=== PATIENT | male | born 1980 | race Caucasian/White ===

== ENCOUNTER 2017-01-04 03:24 | Inpatient (IN) | payer OTHER ==
[~2017-01-04] VITALS: Ht 182.9 cm; Wt 72.1 kg
[2017-01-04 06:34] VITALS: BP 126/89; PULSE 71; RESP 18; TEMP 98.6; O2SAT 99
[2017-01-04] MEDS ORDERED: diphenhydrAMINE HCL 50 MG/ML VIAL - HS PRN IM (07:30)
[2017-01-04] MEDS ORDERED: MAGNESIUM HYDROXIDE SUSP 30 ML CUP PO PRN (07:30)
[2017-01-04] MEDS ORDERED: ALUMINUM/MAGNESIUM/SIMETH 30 ML CUP PO PRN (07:30)
[2017-01-04] MEDS ORDERED: ACETAMINOPHEN 325 MG TAB PO PRN (07:30)
[2017-01-04] MEDS ORDERED: diphenhydrAMINE HCL 50 MG CAP - HS PRN PO (07:30)
[2017-01-04] MEDS ORDERED: LORazepam 1 MG TAB PO PRN (07:45)
[2017-01-04] MEDS ORDERED: FLUMAZENIL 0.5 MG/5 ML VIAL IV PUSH PRN (07:45)
[2017-01-04] MEDS ORDERED: LORazepam 2 MG/ML VIAL IV PUSH PRN ×4 (07:45)
[2017-01-04] MEDS ORDERED: LORazepam 2 MG TAB PO PRN (07:45)
[2017-01-04] MEDS: NICOTINE 21 MG/24 HR PATCH T-DERMAL SCH (09:00)
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
[2017-01-04] MEDS: hydrOXYzine HCL 50 MG TAB PO PRN (17:22)
[2017-01-04 18:18] VITALS: BP 123/80; PULSE 72; RESP 17; TEMP 97.8; O2SAT 99
[2017-01-04] MEDS: REMOVE OLD NICOTINE PATCH T-DERMAL SCH (20:38)
[2017-01-04] MEDS: traZODone HCL 50 MG TAB PO PRN (20:40)
[2017-01-05 05:42] VITALS: BP 116/69; PULSE 68; RESP 16; TEMP 97.8; O2SAT 97
[2017-01-05] MEDS: FOLIC ACID 1 MG TAB PO SCH (08:52)
[2017-01-05] MEDS: NICOTINE 21 MG/24 HR PATCH T-DERMAL SCH (08:52)
[2017-01-05] MEDS: THIAMINE HCL 100 MG TAB PO SCH (08:52)
[2017-01-05] MEDS ORDERED: SERTRALINE HCL 50 MG TAB PO SCH (09:00)
[2017-01-05 10:00] LABS: ANION GAP 8 MEQ/L (5-15); AST (GOT) 43 U/L (15-37); BICARBONATE 26.7 MEQ/L (21.0-32.0); BLOOD UREA NITROGEN 11 MG/DL (7-18); CHLORIDE 106 MEQ/L (98-107); GLOMERULAR FILTRATION RATE 112 ML/MIN (>89); POTASSIUM 3.8 MEQ/L (3.5-5.1); SODIUM (NA) 141 MEQ/L (136-145)
[2017-01-05 10:12] LABS: ALKALINE PHOSPHATASE 121 U/L (45-117); ALT (GPT) 97 U/L (12-78); HDL CHOLESTEROL 32.4 MG/DL (40.0-60.0); LDL CHOLESTEROL 54 MG/DL (0-99); TOTAL BILIRUBIN ADULT 0.6 MG/DL (0.2-1.0)
--- NOTE | 2017-01-05 10:12 | HHI.PYPN ---
Subjective Chief Complaint: "I don't have anywhere to stay and I can't work." Remarks Patient seen and examined with counselor. Chart reviewed. Case discussed in treatment team. On my exam, patient is dysphoric. He remains fairly soft- spoken and withdrawn. He complains of "bad dreams" overnight. He does not usually have nightmares. Denies active SI. Denies side effects from medications. No new physical complaints. We discuss pharmacotherapeutic options going forward and well as dispo planning. Review of Systems Except as stated in HPI: all other systems reviewed are Neg Mental Status Examination Appearance: Disheveled Consciousness: Alert Orientation: Person, Place (at least) Motor Activity: Other (no motor abnormalities noted) Speech: Other (remains soft) Language: Adequate Fund of Knowledge: Adequate Attention and Concentration: Adequate Memory: Unremarkable (grossly intact on clinical exam) Mood: Other (dysphoric) Affect: Other (restricted) Thought Process & Associations: Intact, Logical, Linear Thought Content: Appropriate Hallucination Type: None Delusion Type: None Suicidal Ideation: No Suicidal Plan: No Suicidal Intention: No Homicidal Ideation: No Homicidal Plan: No Homicidal Intention: No Insight: Fair Judgment: Impulsive Mental Status Exam Remarks No signs of withdrawal noted. CIWA scores have been 0. Results Labs Test 01/05/17 09:09 Blood Urea Nitrogen 11 MG/DL Creatinine 0.79 MG/DL Random Glucose 87 MG/DL Total Protein 6.9 GM/DL Albumin 3.4 GM/DL Calcium Level 8.6 MG/DL Alkaline Phosphatase 121 U/L Aspartate Amino Transf (AST/SGOT) 43 U/L Alanine Aminotransferase (ALT/SGPT) 97 U/L Total Bilirubin 0.6 MG/DL Sodium Level 141 MEQ/L Potassium Level 3.8 MEQ/L Chloride Level 106 MEQ/L Carbon Dioxide Level 26.7 MEQ/L Anion Gap 8 MEQ/L Estimat Glomerular Filtration Rate 112 ML/MIN Triglycerides Level 309 MG/DL Cholesterol Level 148 MG/DL LDL Cholesterol 54 MG/DL HDL Cholesterol 32.4 MG/DL Cholesterol/HDL Ratio 4.56 RATIO Thyroid Stimulating Hormone 3rd Gen 1.220 uIU/ML Labs reviewed. Mild transaminitis. Triglycerides elevated and the patient will be referred to primary care on discharge. Vitals/IOs Vital Signs Date Time Temp Pulse Resp B/P (MAP) Pulse Ox O2 Delivery O2 Flow Rate FiO2 01/05/17 05:42 97.8 68 16 116/69 (85) 97 Intake and Output 01/05/17 01/05/17 01/06/17 08:00 16:00 00:00 Intake Total 360 ml Balance 360 ml Assessment & Plan Problem List: (1) Adjustment disorder with depressed mood ICD Codes: F43.21 - Adjustment disorder with depressed mood (2) Cocaine abuse ICD Codes: F14.10 - Cocaine abuse, uncomplicated (3) Alcohol abuse ICD Codes: F10.10 - Alcohol abuse, uncomplicated Assessment & Plan Titrate Zoloft over the weekend to target dysphoria. Trend LFTs. Continue to monitor on the inpatient unit. Continue other medications and care as ordered. Justification for Cont. Inpt. Med changes. Monitoring for impairments in safety, none noted. Discharge Planning Anticipate discharge beginning of next week. Request HC Surrog/Guard Advoc?: No Chapin Wheeler MD Jan 05, 2017 10:12
--- NOTE | 2017-01-05 11:35 | PD.TTN ---
Patient Problems 1. Discharge planning 2. Medication compliance 3. Knowledge deficit 4. Lack of coping skills Progress Toward Goals Provider Present: Dr. Diamond Wheeler Provider Input: Pt medication regiment has been adjusted including addition of Zoloft and Trazadone. He will continue to be monitored. Nurse(s) Present: Tosha Carter RN Nurse(s) Input: Pt appears seclusive, hopeless, helpless, withdrawn, medication compilant and with suicidal ideation though there is no reported plan. Psychiatric Counselors Present: DIONISIO Gonzalez Psych Therapist Input: Pt appears withdrawn, seclusive, depressed, hopeless, helpless, medication focused and guarded. Pt reports that he is not feeling any different then when he was admitted with ongoing mood symptoms and vague suicidal ideation. He is heavily focused on medication, namely Xanax, and issues with lack of services previously. Discussed discharge planning and services that he will be assisted with. Pt presents with some underlying agitation though no noted aggression. He states he is not sleeping well and is having "bad dreams". Pt is compliant with medication regiment. Insight remains poor into condition and need for care. He recognizes triggers to his emotional distress but appears unable to utilize coping skills at this time to manage these. Group Spec/RT/OT/ELLIOTT Present: EARL Mark Group Spec/RT/OT/ELLIOTT Input: Pt is new to the unit and is being evaluated with regard to his participation level in groups. Discharge Plan Other Pt will likely be a homeless discharge but will be linked to outpatient follow up services and will be provided with his scripts upon discharge. Documentation Scribe: DIONISIO Gonzalez Jonathan LMHC Jan 05, 2017 11:34
[2017-01-05 11:50] LABS: HEMOGLOBIN A1a 1.2 %; HEMOGLOBIN A1b 1.6 %; HEMOGLOBIN Ao 86.2 %; HEMOGLOBIN LA1C 1.8 %; HEMOGLOBIN P3 3.4 %
[2017-01-05 17:42] VITALS: BP 122/70; PULSE 82; RESP 18; TEMP 97.7; O2SAT 99
[2017-01-05] MEDS: traZODone HCL 50 MG TAB PO PRN (20:42)
[2017-01-05] MEDS: REMOVE OLD NICOTINE PATCH T-DERMAL SCH (20:42)
[2017-01-05] MEDS: hydrOXYzine HCL 50 MG TAB PO PRN (20:42)
[2017-01-06 06:02] VITALS: BP 119/72; PULSE 68; RESP 18; TEMP 97.9; O2SAT 99
[2017-01-06] MEDS: FOLIC ACID 1 MG TAB PO SCH (08:50)
[2017-01-06] MEDS: THIAMINE HCL 100 MG TAB PO SCH (08:50)
[2017-01-06] MEDS: SERTRALINE HCL 50 MG TAB PO SCH (08:51)
[2017-01-06] MEDS: NICOTINE 21 MG/24 HR PATCH T-DERMAL SCH (08:51)
[2017-01-06] MEDS: hydrOXYzine HCL 50 MG TAB PO PRN (13:21)
--- NOTE | 2017-01-06 13:58 | HHI.PYPN ---
Subjective Chief Complaint: "I don't have anywhere to stay and I can't work." Remarks Pt seen and discussed with staff. He has been refusing to shower or perform ADLs. He is compliant with medications and denies side effects. He has been irritable and entitled with medical staff services coordinator. He c/o of anxiety. No SI/HI Mental Status Examination Appearance: Disheveled Consciousness: Alert Orientation: Person, Place (at least) Motor Activity: Other (no motor abnormalities noted) Speech: Other (remains soft) Language: Adequate Fund of Knowledge: Adequate Attention and Concentration: Adequate Memory: Unremarkable (grossly intact on clinical exam) Mood: Irritable, Other (dysphoric) Affect: Irritable, Other (restricted) Thought Process & Associations: Intact, Logical, Linear Thought Content: Appropriate Hallucination Type: None Delusion Type: None Suicidal Ideation: No Suicidal Plan: No Suicidal Intention: No Homicidal Ideation: No Homicidal Plan: No Homicidal Intention: No Insight: Fair Judgment: Impulsive Results Vitals/IOs Vital Signs Date Time Temp Pulse Resp B/P (MAP) Pulse Ox O2 Delivery O2 Flow Rate FiO2 01/06/17 06:02 97.9 68 18 119/72 (88) 99 Assessment & Plan Problem List: (1) Adjustment disorder with depressed mood ICD Codes: F43.21 - Adjustment disorder with depressed mood (2) Cocaine abuse ICD Codes: F14.10 - Cocaine abuse, uncomplicated (3) Alcohol abuse ICD Codes: F10.10 - Alcohol abuse, uncomplicated Assessment & Plan Continue current tx plan. Estimated LOS: days Justification for Cont. Inpt. risk of decompensation Request HC Surrog/Guard Advoc?: Anna Bhatia MD Jan 06, 2017 13:58
[2017-01-06 17:29] VITALS: BP 106/74; PULSE 83; RESP 18; TEMP 98.3; O2SAT 97
[2017-01-06 19:58] LABS: INDIRECT BILIRUBIN 0.5 MG/DL (0.0-0.8); TOTAL BILIRUBIN ADULT 0.6 MG/DL (0.2-1.0)
[2017-01-06] MEDS: traZODone HCL 50 MG TAB PO PRN (20:34)
[2017-01-06] MEDS: REMOVE OLD NICOTINE PATCH T-DERMAL SCH (20:35)
[2017-01-07 06:06] VITALS: BP 93/54; PULSE 62; RESP 17; TEMP 97.6; O2SAT 98
[2017-01-07] MEDS: THIAMINE HCL 100 MG TAB PO SCH (09:00)
[2017-01-07] MEDS: FOLIC ACID 1 MG TAB PO SCH (09:00)
[2017-01-07] MEDS: NICOTINE 21 MG/24 HR PATCH T-DERMAL SCH (09:00)
[2017-01-07] MEDS: SERTRALINE HCL 50 MG TAB PO SCH (09:00)
[2017-01-07] MEDS: hydrOXYzine HCL 50 MG TAB PO PRN (09:23)
--- NOTE | 2017-01-07 13:13 | HHI.PYPN ---
Subjective Chief Complaint: "I don't have anywhere to stay and I can't work." Remarks Pt seen and discussed with staff. He has been compliant with medications. No SI/ HI. He has been irritable with RNs and engaging in drug seeking behaviors, but has not been aggressive or agitated. He has been isolative to his room. Mental Status Examination Appearance: Disheveled Consciousness: Alert Orientation: Person, Place (at least) Motor Activity: Other (no motor abnormalities noted) Speech: Other (remains soft) Language: Adequate Fund of Knowledge: Adequate Attention and Concentration: Adequate Memory: Unremarkable (grossly intact on clinical exam) Mood: Irritable, Other (dysphoric) Affect: Irritable, Other (restricted) Thought Process & Associations: Intact, Logical, Linear Thought Content: Appropriate Hallucination Type: None Delusion Type: None Suicidal Ideation: No Suicidal Plan: No Suicidal Intention: No Homicidal Ideation: No Homicidal Plan: No Homicidal Intention: No Insight: Fair Judgment: Impulsive Results Labs Test 01/06/17 19:16 Total Bilirubin 0.6 MG/DL Direct Bilirubin 0.1 MG/DL Indirect Bilirubin 0.5 MG/DL Aspartate Amino Transf (AST/SGOT) 46 U/L Alanine Aminotransferase (ALT/SGPT) 108 U/L Alkaline Phosphatase 142 U/L Total Protein 7.7 GM/DL Albumin 3.7 GM/DL Vitals/IOs Vital Signs Date Time Temp Pulse Resp B/P (MAP) Pulse Ox O2 Delivery O2 Flow Rate FiO2 01/07/17 06:06 97.6 62 17 93/54 (67) 98 Assessment & Plan Problem List: (1) Adjustment disorder with depressed mood ICD Codes: F43.21 - Adjustment disorder with depressed mood (2) Cocaine abuse ICD Codes: F14.10 - Cocaine abuse, uncomplicated (3) Alcohol abuse ICD Codes: F10.10 - Alcohol abuse, uncomplicated Assessment & Plan Continue current tx plan Estimated LOS: days Justification for Cont. Inpt. risk of decompensation Request HC Surrog/Guard Advoc?: Anna Bhatia MD Jan 07, 2017 13:13
[2017-01-07 17:08] VITALS: BP 106/74; PULSE 82; RESP 18; TEMP 97.8; O2SAT 99
[2017-01-07] MEDS: traZODone HCL 50 MG TAB PO PRN (20:29)
[2017-01-07] MEDS: REMOVE OLD NICOTINE PATCH T-DERMAL SCH (20:29)
[2017-01-08 06:40] VITALS: BP 107/58; PULSE 71; RESP 18; TEMP 97.9; O2SAT 97
[2017-01-08] MEDS: THIAMINE HCL 100 MG TAB PO SCH (09:00)
[2017-01-08] MEDS: SERTRALINE HCL 50 MG TAB PO SCH (09:00)
[2017-01-08] MEDS: FOLIC ACID 1 MG TAB PO SCH (09:00)
[2017-01-08] MEDS: NICOTINE 21 MG/24 HR PATCH T-DERMAL SCH (09:02)
--- NOTE | 2017-01-08 11:48 | HHI.PYPN ---
Subjective Chief Complaint: "I don't have anywhere to stay and I can't work." Remarks Patient seen and examined with nurse. Chart reviewed. Case discussed with nursing staff. Patient was apparently verbalizing some vague HI against unspecified others in community but not on unit over weekend. On my exam, patient denies any SI/HI. He does report some irritability, although there is no evidence of induction of manic or mixed state with antidepressant, and if anything patient seems psychomotor slowed and withdrawn. He does report his mood is improving with medications. Denies AVH. He notes he plans to shower today. Denies side effects from medications. No physical complaints. Review of Systems Except as stated in HPI: all other systems reviewed are Neg Mental Status Examination Appearance: Disheveled Consciousness: Alert Orientation: Person, Place Motor Activity: Other (no motoric abnormalities noted. No signs of withdrawal noted.) Speech: Other (a little soft) Language: Adequate Fund of Knowledge: Adequate Attention and Concentration: Adequate Memory: Unremarkable (remains grossly intact on clinical exam) Mood: Irritable, Other (dysphoric) Affect: Irritable, Anxious, Other (restricted) Thought Process & Associations: Intact, Logical, Linear Thought Content: Appropriate Hallucination Type: None Delusion Type: None Suicidal Ideation: No Suicidal Plan: No Suicidal Intention: No Homicidal Ideation: No Homicidal Plan: No Homicidal Intention: No Insight: Fair Judgment: Impulsive Results Labs Labs reviewed. Transaminitis essentially stable over weekend. Hepatitis panel is positive for Hep C antibody. Vitals/IOs Vital Signs Date Time Temp Pulse Resp B/P (MAP) Pulse Ox O2 Delivery O2 Flow Rate FiO2 01/08/17 06:40 97.9 71 18 107/58 (74) 97 Assessment & Plan Problem List: (1) Adjustment disorder with depressed mood ICD Codes: F43.21 - Adjustment disorder with depressed mood (2) Cocaine abuse ICD Codes: F14.10 - Cocaine abuse, uncomplicated (3) Alcohol abuse ICD Codes: F10.10 - Alcohol abuse, uncomplicated Assessment & Plan Titrate Zoloft to 100 mg daily to target dysphoria. Check LFTs in morning and consult hospitalist regarding mild transaminitis and hepatitis C antibody positivity. No withdrawal; discontinue CIWA scale. I have encouraged participation in unit activities. Continue to monitor on an inpatient unit. Continue other medications care as ordered. Justification for Cont. Inpt. Make changes. Discharge Planning Anticipate d/c in next 1-2 days. Case d/w counselor. Request HC Surrog/Guard Advoc?: No Chapin Wheeler MD Jan 08, 2017 11:48
[2017-01-08] MEDS: hydrOXYzine HCL 50 MG TAB PO PRN (16:04)
[2017-01-08 17:38] VITALS: BP 118/83; PULSE 88; RESP 16; TEMP 97.6; O2SAT 98
[2017-01-08] MEDS: REMOVE OLD NICOTINE PATCH T-DERMAL SCH (20:49)
[2017-01-08] MEDS: traZODone HCL 50 MG TAB PO PRN (20:49)
[2017-01-09 05:40] VITALS: BP 99/60; PULSE 70; RESP 16; TEMP 97.7; O2SAT 97
[2017-01-09] MEDS: THIAMINE HCL 100 MG TAB PO SCH (09:00)
[2017-01-09] MEDS: SERTRALINE HCL 100 MG TAB PO SCH (09:00)
[2017-01-09] MEDS: FOLIC ACID 1 MG TAB PO SCH (09:00)
[2017-01-09] MEDS: NICOTINE 21 MG/24 HR PATCH T-DERMAL SCH (09:00)
--- NOTE | 2017-01-09 11:35 | HHI.PYPN ---
Subjective Chief Complaint: "I don't have anywhere to stay and I can't work." Remarks Patient seen and examined with nurse. Chart reviewed. Case discussed in treatment team. Patient participating little in unit activities, coming out mainly for meals. No behavioral issues overnight. Affect remains a little dysphoric. On my examination today, patient denies SI/HI. Denies AVH. No side effects from medications. No physical complaints. Social issues, namely housing issues, seem to be eclipsing psychiatric issues at this point, and I have instructed counselor to work with patient on final discharge plan. Review of Systems Except as stated in HPI: all other systems reviewed are Neg Mental Status Examination Appearance: Disheveled Consciousness: Alert Orientation: Person, Place Motor Activity: Other (no abnormal motor movements noted) Speech: Unremarkable Language: Adequate Fund of Knowledge: Adequate Attention and Concentration: Adequate Memory: Unremarkable (intact on clinical exam) Mood: Other (mildly dysphoric) Affect: Other (consistent with mood) Thought Process & Associations: Intact, Logical, Linear Thought Content: Appropriate Hallucination Type: None Delusion Type: None Suicidal Ideation: No Suicidal Plan: No Suicidal Intention: No Homicidal Ideation: No Homicidal Plan: No Homicidal Intention: No Insight: Fair (at best) Judgment: Adequate (fair at best) Results Labs Labs reviewed. No new labs. Per nursing staff, patient refusing head CT. I have recommended head CT to him during interview, and he refuses it again for me. Vitals/IOs Vital Signs Date Time Temp Pulse Resp B/P (MAP) Pulse Ox O2 Delivery O2 Flow Rate FiO2 01/09/17 05:40 97.7 70 16 99/60 (73) 97 Assessment & Plan Problem List: (1) Adjustment disorder with depressed mood ICD Codes: F43.21 - Adjustment disorder with depressed mood (2) Cocaine abuse ICD Codes: F14.10 - Cocaine abuse, uncomplicated (3) Alcohol abuse ICD Codes: F10.10 - Alcohol abuse, uncomplicated Assessment & Plan Continue psychotropics as ordered. Awaiting hospitalist input. Continue to monitor on the inpatient unit. Continue other medications and care as ordered. Justification for Cont. Inpt. Discharge planning Discharge Planning Anticipate discharge tomorrow, Sunday. Request HC Surrog/Guard Advoc?: No Chapin Wheeler MD Jan 09, 2017 11:35
--- NOTE | 2017-01-09 14:59 | PD.TTN ---
Patient Problems 1. Discharge planning 2. Medication compliance 3. Knowledge deficit 4. Lack of coping skills Progress Toward Goals Provider Present: Dr. Diamond Wheeler Provider Input: 01-08-17 - Dr. Wheeler reports the patient will be discharged today or tomorrow. Pt medication regiment has been adjusted including addition of Zoloft and Trazadone. He will continue to be monitored. Nurse(s) Present: Tosha Carter RN Nurse(s) Input: Pt appears seclusive, hopeless, helpless, withdrawn, medication compilant and with suicidal ideation though there is no reported plan. Psychiatric Counselors Present: DIONISIO Gonzalez, ROBER Richey Psych Therapist Input: Pt appears withdrawn, seclusive, depressed, hopeless, helpless, medication focused and guarded. Pt reports that he is not feeling any different then when he was admitted with ongoing mood symptoms and vague suicidal ideation. He is heavily focused on medication, namely Xanax, and issues with lack of services previously. Discussed discharge planning and services that he will be assisted with. Pt presents with some underlying agitation though no noted aggression. He states he is not sleeping well and is having "bad dreams". Pt is compliant with medication regiment. Insight remains poor into condition and need for care. He recognizes triggers to his emotional distress but appears unable to utilize coping skills at this time to manage these. Group Spec/RT/OT/ELLIOTT Present: EARL Mark Group Spec/RT/OT/ELLIOTT Input: 01-08-17 - Patient is not participating in groups. Pt is new to the unit and is being evaluated with regard to his participation level in groups. Discharge Plan Other Pt will likely be a homeless discharge but will be linked to outpatient follow up services and will be provided with his scripts upon discharge. Documentation Scribe: DIONISIO Gonzalez, SHILOH RicheyI Date Resolved: Jan 09, 2017 Brittni Camacho Jan 09, 2017 14:59
--- NOTE | 2017-01-09 15:41 | PD.CONS ---
HPI Service [facility] Hospitalists Consult Requested By Dr. Wheeler Reason for Consult Medical management Primary Care Physician No Primary Care Physician Diagnoses: History of Present Illness The patient is a 36-year-old male who was transferred to the psychiatric unit under a Esparza act for suicidal thoughts. Apparently the patient is homeless and has been unable to work. He says he has had thoughts of killing himself via a heroin overdose. He says he has overdosed on heroin 3 times in his life, but none of those times have been intentional. He states he has pain from a spinal fusion he had in June as well as a left ulna repair he had 3 or 4 weeks ago. The patient says he last used heroin in September. He does still use cocaine every once in a while. 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 He says he has shared needles in the past. He had no acute complaints at this time. Discussed with nursing. Review of Systems Except as stated in HPI: all other systems reviewed are Neg Past Family Social History Allergies: Coded Allergies: ziprasidone (Verified Adverse Reaction, Unknown, EPS, 01/04/17) "lock jaw" per patient Past Medical History IV drug abuse Spinal fusion Left ulnar fracture repair Cholecystectomy Active Ordered Medications Current Medications Medications (Trade) Dose Ordered Sig/Joanna Route Start Time Stop Time Status Last Admin (Atarax) 50 mg Q6H PRN PO 01/04/17 07:30 01/08/17 16:04 (Tylenol) 650 mg Q4H PRN PO 01/04/17 07:30 (Milk Of Magnesia Liq) 30 ml DAILY PRN PO 01/04/17 07:30 (Mag-Al Plus Susp Liq) 30 ml Q6H PRN PO 01/04/17 07:30 (Habitrol 21 Mg Patch.24 Hr) 1 patch DAILY T-DERMAL 01/04/17 09:00 01/09/17 09:00 Miscellaneous Information 1 HS T-DERMAL 01/04/17 21:00 01/08/17 20:49 (Romazicon Inj) 0.2 mg Q1M PRN IV PUSH 01/04/17 07:45 (Desyrel) 50 mg HS PRN PO 01/04/17 14:45 01/08/17 20:49 (Vitamin B1) 100 mg DAILY PO 01/05/17 09:00 01/09/17 09:00 (Folate) 1 mg DAILY PO 01/05/17 09:00 01/09/17 09:00 (Zoloft) 100 mg DAILY PO 01/09/17 09:00 01/09/17 09:00 Family History The patient denies pertinent family history. Social History The patient smokes 1 pack per day. He says he drinks about 6 beers daily. He last used IV heroin in September. He uses cocaine regularly. He is homeless. He is not currently working. Physical Exam Vital Signs Vital Signs Date Time Temp Pulse Resp B/P (MAP) Pulse Ox O2 Delivery O2 Flow Rate FiO2 01/09/17 05:40 97.7 70 16 99/60 (73) 97 01/08/17 17:38 97.6 88 16 118/83 (95) 98 Physical Exam GENERAL: This is a well-nourished, well-developed patient, in no apparent distress. SKIN: No rashes, ecchymoses or lesions. Cool and dry. HEAD: Atraumatic. Normocephalic. No temporal or scalp tenderness. EYES: Pupils equal round and reactive. Extraocular motions intact. No scleral icterus. No injection or drainage. ENT: Nose without bleeding, purulent drainage or septal hematoma. Throat without erythema, tonsillar hypertrophy or exudate. Uvula midline. Airway patent. NECK: Trachea midline. No JVD or lymphadenopathy. Supple, nontender, no meningeal signs. CARDIOVASCULAR: Regular rate and rhythm without murmurs, gallops, or rubs. RESPIRATORY: Clear to auscultation. Breath sounds equal bilaterally. No wheezes , rales, or rhonchi. GASTROINTESTINAL: Abdomen soft, non-tender, nondistended. No hepato-splenomegaly , or palpable masses. No guarding. Old surgical scar noted. MUSCULOSKELETAL: Extremities without clubbing, cyanosis, or edema. No joint tenderness, effusion, or edema noted. NEUROLOGICAL: Awake and alert. Cranial nerves II through XII intact. Motor and sensory grossly within normal limits. Five out of 5 muscle strength in all muscle groups. Normal speech. PSYCH: Flattened affect. Result Diagram: 01/05/17 0909 Assessment and Plan Assessment and Plan Mood disorder Transferred to [place] under a Esparza Act. - management per psychiatry. Hepatitis C Hepatitis profile with reactive hepatitis C antibodies. LFTs are elevated. The pt continues to drink a significant amount of beer daily. - alcohol cessation discussed extensively with pt. - if repeat LFTs remain stable the pt is clear for discharge from the hospital with GI follow-up. Drug use The pt uses cocaine and used to use IV heroin. - cessation instruction. PPx: Ambulation Discussed Condition With Pt, nurse Reed Garcia DO Jan 09, 2017 15:41
[2017-01-09] MEDS: hydrOXYzine HCL 50 MG TAB PO PRN (15:50)
[2017-01-09 17:44] LABS: ANION GAP 9 MEQ/L (5-15); AST (GOT) 54 U/L (15-37); BICARBONATE 27.2 MEQ/L (21.0-32.0); BLOOD UREA NITROGEN 17 MG/DL (7-18); CHLORIDE 101 MEQ/L (98-107); GLOMERULAR FILTRATION RATE 90 ML/MIN (>89); POTASSIUM 4.1 MEQ/L (3.5-5.1); SODIUM (NA) 137 MEQ/L (136-145)
[2017-01-09 17:45] LABS: ALT (GPT) 114 U/L (12-78)
[2017-01-09 17:47] LABS: ALKALINE PHOSPHATASE 131 U/L (45-117); TOTAL BILIRUBIN ADULT 0.7 MG/DL (0.2-1.0)
[2017-01-09 17:48] VITALS: BP 119/67; PULSE 79; RESP 18; TEMP 97.9; O2SAT 99
[2017-01-09] MEDS: REMOVE OLD NICOTINE PATCH T-DERMAL SCH (21:00)
[2017-01-09] MEDS: traZODone HCL 50 MG TAB PO PRN (21:05)
[2017-01-10 06:12] VITALS: BP 109/76; PULSE 78; RESP 18; TEMP 97.3; O2SAT 99
[2017-01-10] MEDS: FOLIC ACID 1 MG TAB PO SCH (08:54)
[2017-01-10] MEDS: THIAMINE HCL 100 MG TAB PO SCH (08:55)
[2017-01-10] MEDS: SERTRALINE HCL 100 MG TAB PO SCH (08:55)
[2017-01-10] MEDS: NICOTINE 21 MG/24 HR PATCH T-DERMAL SCH (08:56)
[2017-01-10] MEDS ORDERED: ZOLO100T PO (10:53)
[2017-01-10] MEDS ORDERED: TRAZ50TA12 PO (10:53)
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
== END 2017-01-10 16:10 | disposition home or self-care (01) | DRG 881 ==
LOC: H270 06:15
PROVIDERS: ADMIT Psychiatry & Neurology Psychiatry; ATTEND Psychiatry & Neurology Psychiatry
DX: F43.21 Adjustment disorder with depressed mood (principal); R45.851 Suicidal ideations; F14.10 Cocaine abuse, uncomplicated; F10.10 Alcohol abuse, uncomplicated; F31.9 Bipolar disorder, unspecified; F11.90 Opioid use, unspecified, uncomplicated; F41.9 Anxiety disorder, unspecified; G89.29 Other chronic pain; B19.20 Unspecified viral hepatitis C without hepatic coma; F17.210 Nicotine dependence, cigarettes, uncomplicated; Z59.0 Homelessness; Z76.5 Malingerer [conscious simulation]; Z79.899 Other long term (current) drug therapy; Z98.1 Arthrodesis status; Z91.5 Personal history of self-harm
CPT/HCPCS: 80053; 80061; 80074; 80076; 82248; 83036; 84443